=== PATIENT | female | born 1975 | race African-American/Black ===

== ENCOUNTER 2017-12-04 17:56 | Inpatient (IN) | payer SELFPAY ==
[2017-12-04 18:44] VITALS: BMI 38.5
[2017-12-04] MEDS ORDERED: ONDANSETRON 4 MG (ODT) TAB PO PRN (18:58)
[2017-12-04] MEDS ORDERED: LABETALOL 20 MG/4ML SYRINGE IV PRN (19:04)
[2017-12-04 19:28] LABS: Absolute Lymphocytes (CBC) 2.1 K/uL (0.7-4.9); Absolute Monocytes 0.5 K/uL (0.1-1.3); Absolute Neutrophil 5.2 K/uL (1.8-8.0); Basophils % 0.9 % (0-1.3); Eosinophils % 2.3 % (0-4.4); Hematocrit 38.1 % (36.0-45.0); Lymphocytes % 26.3 % (15.3-44.8); MCH 28.1 pg (27.0-35.0); MCV 88.5 fL (80-100); MPV 7.8 fL (7.6-11.3); Monocytes % 5.7 % (3.3-12.3); RBC Red Blood Cell Count 4.31 M/uL (3.86-4.86)
[2017-12-04 19:32] LABS: Protime INR 0.92
[2017-12-04 19:41] LABS: Potassium 3.8 mEq/L (3.6-5.0)
[2017-12-04 19:44] LABS: Albumin 3.7 g/dL (3.2-5.5); Bilirubin Total 0.2 mg/dL (0.3-1.2)
[2017-12-04] MEDS: NA CHLORIDE 0.9% 1,000 ML IV SCH (20:04)
[2017-12-04] MEDS: ENOXAPARIN 100 MG/ML SYR SQ SCH (20:34)
[2017-12-05] MEDS ORDERED: MORPHINE 2 MG/ML SYR IV ONE (00:12)
[2017-12-05] MEDS ORDERED: MORPHINE 4 MG/ML SYR ONE (00:41)
[2017-12-05] MEDS: HYDROCODONE/APAP 10/325 TAB PO PRN (04:37)
[2017-12-05] MEDS: NA CHLORIDE 0.9% 1,000 ML IV SCH ×2 (04:38→16:42)
[2017-12-05 04:52] LABS: Absolute Lymphocytes (CBC) 1.5 K/uL (0.7-4.9); Absolute Monocytes 0.5 K/uL (0.1-1.3); Absolute Neutrophil 5.5 K/uL (1.8-8.0); Basophils % 0.8 % (0-1.3); Eosinophils % 1.1 % (0-4.4); Hematocrit 35.8 % (36.0-45.0); Lymphocytes % 19.7 % (15.3-44.8); MCH 28.4 pg (27.0-35.0); MPV 8.1 fL (7.6-11.3); Monocytes % 5.9 % (3.3-12.3); RBC Red Blood Cell Count 4.06 M/uL (3.86-4.86)
[2017-12-05 05:03] LABS: Albumin 3.4 g/dL (3.2-5.5); Bilirubin Total 0.4 mg/dL (0.3-1.2); Potassium 3.7 mEq/L (3.6-5.0); Protein, Total 6.4 g/dL (6.0-8.3)
--- NOTE | 2017-12-05 05:05 | EKG ---
Test Date: 2017-12-04 Test Time: 23:33:25 Sightseeing Guide: RT T MEASUREMENT RESULTS: Intervals: Rate: 67 AK: 142 QRSD: 78 QT: 436 QTc: 460 [place]: P: 42 AK: 142 QRS: 36 T: 49 INTERPRETIVE STATEMENTS: Normal sinus rhythm Normal ECG No previous ECG available for comparison Electronically Signed On 12-05-17 05:05:05 CDT by Richard Jackson
[2017-12-05] MEDS ORDERED: POTASSIUM 25 MEQ EFFERV TAB PO ONE (05:17)
[2017-12-05] MEDS ORDERED: MORPHINE 4 MG/ML SYR IV PRN (07:16)
--- NOTE | 2017-12-05 07:48 | P.HP ---
Certification for Inpatient Patient admitted to: Observation With expected LOS: <2 Midnights Patient will require the following post-hospital care: None Practitioner: I am a practitioner with admitting privileges, knowledge of patient current condition, hospital course, and medical plan of care. Services: Services provided to patient in accordance with Admission requirements found in Title 42 Section 412.3 of the Code of Federal Regulations Patient History Date of Service: 12/04/17 Reason for admission: Pulmonary embolism History of Present Illness: Patient is a 42-year-old female who has no medical history who presented to [place] emergency room with complaints of chest pain. Patient was having shortness of breath along with the chest pain. Patient had traveled to [place] and back to [place] over the last few days. Patient has sent and shortness of breath and chest pain and her workup revealed a pulmonary embolism. According to the emergency room physician the patient's pulmonary embolism was in the right lower lobe distally and it was nonocclusive. Patient has never had a blood clot before. Patient denies any history of hormone use but she does smoke occasionally. She denies family members with a history of DVT. At this time she will be started on Lovenox. Patient may need to take Coumadin going forward. Allergies No Known Allergies Allergy (Verified 12/04/17 18:26) Home Medications: NK [No Home Meds] 12/04/17 - Past Medical/Surgical History Has patient received pneumonia vaccine in the past: No Diabetic: No -: HTN -: x3 - Family History Father Medical History: Heart disease, Hypertension, Diabetes Mother Medical History: Diabetes - Social History Smoking Status: Current some day smoker Alcohol use: Yes CD- Drugs: No Caffeine use: Yes Place of Residence: Home Review of Systems 10-point ROS is otherwise unremarkable Physical Examination - Vital Signs Temperature: 98.1 F Blood Pressure: 139/84 Pulse: 81 Respirations: 17 Pulse Ox (%): 94 - Physical Exam General: Alert, In no apparent distress, Oriented x3 HEENT: Atraumatic, PERRLA, Mucous membr. moist/pink, EOMI, Sclerae nonicteric Neck: Supple, 2+ carotid pulse no bruit, No LAD, Without JVD or thyroid abnormality Respiratory: Clear to auscultation bilaterally, Normal air movement Cardiovascular: Regular rate/rhythm, Normal S1 S2, No murmurs Gastrointestinal: Normal bowel sounds, Soft and benign, Non-distended, No tenderness Musculoskeletal: No clubbing, No swelling, No tenderness Integumentary: No rashes Neurological: Normal gait, Normal speech, Normal strength at 5/5 x4 extr, Normal tone, Normal affect Lymphatics: No axilla or inguinal lymphadenopathy - Studies Laboratory Data (last 24 hrs) 12/05/17 04:09: Sodium 138, Potassium 3.7, BUN 10, Creatinine 0.85, Glucose 109 , Total Bilirubin 0.4, AST 17, ALT 11, Alkaline Phosphatase 57 12/05/17 04:09: WBC 7.6, Hgb 11.5 L, Hct 35.8 L, Plt Count 304 12/04/17 19:19: Sodium 140, Potassium 3.8, BUN 14, Creatinine 0.90, Glucose 85, Total Bilirubin 0.2 L, AST 15, ALT 12, Alkaline Phosphatase 66 12/04/17 19:19: PT 10.9, INR 0.92 12/04/17 19:19: WBC 8.0, Hgb 12.1, Hct 38.1, Plt Count 316 Assessment & Plan - Problems (Diagnosis) (1) Pulmonary embolism Current Visit: Yes Status: Acute (2) History of tobacco use Current Visit: Yes Status: Acute (3) History of hypertension Current Visit: Yes Status: Acute - Plan Plan: 1. Anticoagulation 2. Pain control 3. Echocardiogram 4. Bilateral lower extremity venous Doppler 5. Social work consultation 6. Vitals Q 4 7. GI and DVT prophylax - Advance Directives Does patient have a Living Will: No Does patient have a Durable POA for Healthcare: No - Code Status/Comfort Care Code Status Assessed: Yes Code Status: Full Code Critical Care: No Time Spent Managing PTS Care (In Minutes): 50
[2017-12-05] MEDS ORDERED: LABETALOL 20 MG/4ML SYRINGE IV PRN (08:00)
--- NOTE | 2017-12-05 08:22 | RAD REPORT ---
EXAM DESCRIPTION: VASExtrem Venous W Compress Bil12/05/2017 7:44 am CLINICAL HISTORY: Bilateral leg swelling COMPARISON: none FINDINGS: The common femoral, superficial femoral, popliteal and posterior tibial veins bilaterally are compressible and demonstrate augmentation. Doppler demonstrates good flow. IMPRESSION: No evidence of deep venous thrombosis involving either lower extremity.
[2017-12-05] MEDS: ENOXAPARIN 100 MG/ML SYR SQ SCH ×2 (08:56→21:37)
--- NOTE | 2017-12-05 15:18 | PN ---
Date of Progress Note: 12/05/2017 The patient seen and examined. Chart reviewed and case discussed with RN. Subjective: Family present at the bedside, . Treatment plan explained and all questions answered. Patient denies any shortness of breath or chest pain. Review of Systems: Negative except as above. Medications: Reviewed. Physical Examination: Vital Signs: Temperature 97.6, heart rate 68, blood pressure 144/96, respirations 16, O2 100% on room air. General: Awake, alert, oriented x3, in no acute distress, somewhat ill- appearing, obese female. BMI 38.6. CV: S1, S2. No murmurs. Regular rate and rhythm. Peripheral pulses present bilaterally. Respiratory: Clear to auscultation bilaterally. No wheezing. No stridor. No use of accessory muscles. Gastrointestinal: Abdomen is soft, nontender, nondistended. Positive bowel sounds. Extremities: No clubbing, cyanosis, or edema. Neurologic: Nonfocal. Laboratory Data: Sodium 138, potassium 3.7, chloride 109, CO2 22, BUN 10, creatinine 0.85, glucose 109, calcium 8.5. WBC 7.6, H and H 11.5 and 35.8, platelets 304. INR 0.92 from 12/04/2017. Doppler sonogram shows no evidence of deep venous thrombosis involving either lower extremity. Echocardiogram pending. Assessment: A 42-year-old female with; 1. Acute pulmonary embolism and left lower lobe distally nonocclusive. We will continue with Lovenox and bridge with Coumadin. Monitor INR. 2. Nicotine dependence with cigarette smoking, counseled. 3. Essential hypertension, uncontrolled. Continue p.r.n. blood pressure medications. 4. Obesity, BMI 38.6, counseled. 5. Gastrointestinal and deep venous thrombosis prophylaxis addressed. Plan: Follow up on echocardiogram. Consider Pulmonology consultation. OCTAVIO Voice ID: [id number] Report ID: [id number] MTDD
--- NOTE | 2017-12-05 16:58 | ECHO ---
HEIGHT: 5 ft 2 in WEIGHT: 211 lb 0 oz DATE OF STUDY: 12/05/[address]: Erik Quiroz MD 2-DIMENSIONAL: YES M.MODE: YES DOPPLER: YES COLOR FLOW: YES TDS: PORTABLE: DEFINITY: BUBBLE STUDY: DIAGNOSIS: PULMONARY EMBOLISM CARDIAC HISTORY: CATHERIZATION: NO SURGERY: NO PROSTHETIC VALVE: NO PACEMAKER: NO MEASUREMENTS (cm) DIASTOLIC (NORMALS) SYSTOLIC (NORMALS) IVSd 1.0 (0.6-1.2) LA Diam 3.3 (1.9-4.0) LVEF 62% LVIDd 4.5 (3.5-5.7) LVIDs 3.0 (2.0-3.5) %FS 33% LVPWd 1.2 (0.6-1.2) Ao Diam 3.5 (2.0-3.7) 2 DIMENSIONAL ASSESSMENT: RIGHT ATRIUM: NORMAL LEFT ATRIUM: NORMAL RIGHT VENTRICLE: NORMAL LEFT VENTRICLE: NORMAL TRICUSPID VALVE: NORMAL MITRAL VALVE: NORMAL PULMONIC VALVE: NORMAL AORTIC VALVE: NORMAL PERICARDIAL EFFUSION: NONE AORTIC ROOT: NORMAL LEFT VENTRICULAR WALL MOTION: NORMAL DOPPLER/COLOR FLOW: MILD TRICUSPID REGURGITATION. NORMAL RIGHT VENTRICULAR SYSTOLIC PRESSURE. COMMENTS: MILD TRICUSPID REGURGITATION. NORMAL RIGHT VENTRICULAR SYSTOLIC PRESSURE. NORMAL LEFT VENTRICULAR SIZE AND FUNCTION. NO WALL MOTION ABNORMALITY. TECHNOLOGIST: LEILA HENRY
[2017-12-05] MEDS ORDERED: WARFARIN SODIUM 5 MG TAB PO SCH (17:00)
[2017-12-05] MEDS: PANTOPRAZOLE 40MG TABLET PO SCH (18:05)
[2017-12-06] MEDS: NA CHLORIDE 0.9% 1,000 ML IV SCH (03:07)
[2017-12-06] MEDS: ACETAMINOPHEN 500 MG TAB PO PRN (04:51)
[2017-12-06 05:08] LABS: Protime INR 0.94
[2017-12-06 05:21] LABS: BUN Blood Urea Nitrogen 7 mg/dL (6-20); Bicarbonate 26 mEq/L (21-31); Glomerular Filtration Rate > 90 mL/min (=/>90); Glucose Level 92 mg/dL (65-120); Magnesium 1.8 mg/dL (1.8-2.5); Potassium 4.1 mEq/L (3.6-5.0); Sodium Level 139 mEq/L (135-145)
[2017-12-06] MEDS ORDERED: MAGNESIUM SULFATE 1 gm IVPB 1 GM/100 ML BAG IV ONE (06:05)
[2017-12-06] MEDS: PANTOPRAZOLE 40MG TABLET PO SCH (06:29)
[2017-12-06 08:01] LABS: Urine Appearance TURBID; Urine Blood 3+ (NEG); Urine Color RED; Urine Glucose NEGATIVE (NEG); Urine Protein 2+ (NEG)
[2017-12-06 08:08] LABS: Urine Bilirubin NEGATIVE (NEG); Urine Microscopic Reflex ORDER UMIC
[2017-12-06 08:10] LABS: Urine Bacteria >50 /HPF (<20); Urine Culture Reflex Order REFLEXED; Urine RBC TNTC /HPF (NONE SEEN)
[2017-12-06] MEDS: ENOXAPARIN 100 MG/ML SYR SQ SCH ×2 (09:07→21:52)
[2017-12-06] MEDS: CEFTRIAXONE/SWI 1gm 1 GM/10 ML SYR IV SCH (11:17)
[2017-12-06] MEDS: POLYETHYL GLY 3350 17 GM/DOSE PO SCH (11:20)
[2017-12-06] MEDS ORDERED: WARFARIN SODIUM 7.5 MG TAB PO SCH (17:00)
[2017-12-06] MEDS: AMLODIPINE 5 MG TAB PO SCH (17:29)
--- NOTE | 2017-12-06 20:21 | PN ---
Date of Progress Note: 12/06/2017 Subjective: The patient is seen and examined, chart reviewed and case discussed with RN. The patient is doing well. Denies any shortness of breath or chest pain. Does report some constipation. at the bedside. Treatment plan explained. All questions answered. The patient counseled on being compliant with Coumadin diet. Review of Systems: Negative except as above. Medications: Reviewed. Physical Examination: Vital Signs: Temperature 98.2, heart rate 80, blood pressure 165/99, respirations 16, O2 saturation 97% on room air. General: Awake, alert, and oriented x3. No acute distress. Obese female. BMI 38.6. CV: S1, S2. No murmurs. Peripheral pulses are present bilaterally. Respiratory: Clear to auscultation bilaterally. No wheezing. No stridor. Abdomen: Abdomen is soft, nontender, nondistended. Positive bowel sounds. Extremities: No clubbing, cyanosis, or edema. Neurologic: Nonfocal. Laboratory Data: Sodium 139, potassium 4.1, chloride 110, CO2 26, BUN 7, creatinine 0.78, glucose 92, calcium 8, magnesium 1.8. INR 0.94. UA; 3+ blood , positive nitrite, 2+ leukocyte esterase, too numerous to count rbc's, 5-10 wbc 's, 5-10 squamous epithelial cells, greater than 50 bacteria, negative glucose. Urine culture pending. Echocardiogram shows EF of 62%, mild tricuspid regurg , normal right ventricular systolic pressure. Normal left ventricular size and function. No wall motion abnormality. Assessment And Plan: This is a 42-year-old female with; 1. Acute pulmonary embolism, left lower lobe nonocclusive. We will continue Lovenox and bridge with Coumadin. We will increase Coumadin dose and monitor INR. 2. Nicotine dependence. Cigarette smoking, counseled. 3. Obesity, BMI 38.6. 4. Essential hypertension, uncontrolled. We will adjust blood pressure medications. 5. GI/DVT prophylaxis with PPI and Lovenox. 6. UTI acute cystitis with hematuria will start on Rocephin and follow up on urine culture. Case was discussed with shuttle spotter, Dr. Marley, who recommended outpatient followup as this is a provoked incident. We will need minimum of 3 months of anticoagulation. Echocardiogram does not show any RV strain. SA/MODL Voice ID: [id number] Report ID: [id number] TERRY
[2017-12-06] MEDS: DOCUSATE NA 100 MG CAP PO SCH (21:52)
[2017-12-07 04:41] LABS: BUN Blood Urea Nitrogen 9 mg/dL (6-20); Bicarbonate 27 mEq/L (21-31); Glomerular Filtration Rate > 90 mL/min (=/>90); Glucose Level 99 mg/dL (65-120); Potassium 3.9 mEq/L (3.6-5.0); Sodium Level 140 mEq/L (135-145)
[2017-12-07 04:57] LABS: Protime INR 0.97
[2017-12-07] MEDS ORDERED: POTASSIUM 25 MEQ EFFERV TAB PO ONE (05:11)
[2017-12-07] MEDS: AMLODIPINE 5 MG TAB PO SCH (08:18)
[2017-12-07] MEDS: POLYETHYL GLY 3350 17 GM/DOSE PO SCH (08:18)
[2017-12-07] MEDS: DOCUSATE NA 100 MG CAP PO SCH ×2 (08:18→22:01)
[2017-12-07] MEDS: PANTOPRAZOLE 40MG TABLET PO SCH (08:18)
[2017-12-07] MEDS: ACETAMINOPHEN 500 MG TAB PO PRN (08:19)
[2017-12-07] MEDS: CEFTRIAXONE/SWI 1gm 1 GM/10 ML SYR IV SCH (08:19)
[2017-12-07] MEDS: ENOXAPARIN 100 MG/ML SYR SQ SCH ×2 (08:20→22:02)
--- NOTE | 2017-12-07 14:37 | PN ---
Date of Progress Note: 12/07/2017 Subjective: The patient seen and examined. Chart reviewed and case discussed with RN. The patient is doing well. Has no complaints. The patient had bowel movement today, had been constipated for pa st several days. Review of Systems: Negative except as per HPI. Medications: Reviewed. Physical Examination: Vital Signs: Temperature 97, heart rate 74, blood pressure 141/83, respirations 18, O2 96% on room a ir. General: Awake, alert, oriented x3, in no acute distress. CV: S1, S2. No murmurs. Regular rate and rhythm. Peripheral pulses present. Respiratory: Clear to auscultation bilaterally. No wheezing. No stridor. No use of accessory musc les. Gastrointestinal: Abdomen is soft, nontender, nondistended. Positive bowel sounds. Extremities: No clubbing, cyanosis, or edema. Neurologic: Nonfocal. Laboratory Data: Sodium 140, potassium 3.9, chloride 108, CO2 27, BUN 9, creatinine 0.79, glucose 99 , calcium 8.3. INR 0.97. Urine culture showing no growth. Assessment And Plan: A 42-year-old female with; 1.Acute pulmonary embolism, left lower lobe nonocclusive. We will continue Lovenox 1 mg/kg q.12 jacobo rs. Bridge with Coumadin. INR is still less than 1. We will increase Coumadin dose to 10 mg and mo nitor. 2.Urinary tract infection, acute cystitis with hematuria. Urine culture shows no growth to date. W e will continue with Rocephin. 3.Nicotine dependence with cigarette smoking, counseled. 4.Obesity, BMI 38.6. 5.Essential hypertension, uncontrolled. Added amlodipine. Blood pressure improved. We will contin ue to monitor closely and adjust medications as needed. 6.Gastrointestinal and deep venous thrombosis prophylaxis with PPI and Lovenox. Plan: Continue Lovenox bridge with Coumadin, DC once INR is above 2. SA/MODL Voice ID: [id number] Report ID: [id number]
[2017-12-07] MEDS: WARFARIN SODIUM 5 MG TAB PO SCH (16:34)
[2017-12-07] MEDS: HYDROCODONE/APAP 10/325 TAB PO PRN (22:01)
[2017-12-08 05:08] LABS: Protime INR 1.07
[2017-12-08 05:17] LABS: Potassium 4.2 mEq/L (3.6-5.0)
[2017-12-08] MEDS: DOCUSATE NA 100 MG CAP PO SCH ×2 (08:51→20:50)
[2017-12-08] MEDS: AMLODIPINE 5 MG TAB PO SCH (08:52)
[2017-12-08] MEDS: CEFTRIAXONE/SWI 1gm 1 GM/10 ML SYR IV SCH (08:54)
[2017-12-08] MEDS: ENOXAPARIN 100 MG/ML SYR SQ SCH ×2 (08:54→20:50)
[2017-12-08] MEDS: POLYETHYL GLY 3350 17 GM/DOSE PO SCH (08:55)
[2017-12-08] MEDS: PANTOPRAZOLE 40MG TABLET PO SCH (08:57)
[2017-12-08] MEDS: WARFARIN SODIUM 5 MG TAB PO SCH (16:41)
--- NOTE | 2017-12-08 18:00 | PN ---
Date of Progress Note: 12/08/2017 Subjective: The patient seen and examined. Chart reviewed and case discussed with RN. The patient denies any chest pain or shortness of breath. Review of Systems: Negative except as above. Medications: Reviewed. Physical Examination: Vital Signs: Temperature 97.7, heart rate 67, blood pressure 153/89, respirations 18, O2 97% on room air. General: Awake, alert, and oriented x3. No acute distress. Obese female. CV: S1, S2. Regular rate and rhythm. Pulses present. No murmurs. Respiratory: Clear to auscultation bilaterally. No wheezing. No stridor. No use of accessory musc les. Gastrointestinal: Abdomen is soft, nontender, nondistended. Positive bowel sounds. Extremities: No clubbing, cyanosis, or edema. Neurologic: Nonfocal. Laboratory Data: Sodium 138, potassium 4.2, chloride 105, CO2 29, BUN 12, creatinine 0.92, glucose 9 0, calcium 8.6, INR 1.07. Assessment And Plan: A 42-year-old female with; 1.Acute pulmonary embolism. Left lower lobe nonocclusive thrombus. Continue Lovenox 1 mg/kg q.12 h ours. Coumadin level has been adjusted. INR improving slowly. We will continue to monitor. Goal o f INR is between 2 and 3. 2.Urinary tract infection, acute cystitis with hematuria. Urine culture showing mixed florentin. Chelsi nue treatment with Rocephin. 3.Nicotine dependence with cigarette smoking, counseled. 4.Obesity, BMI 38.6. 5.Hypertension, improved with amlodipine. 6.Gastrointestinal and deep vein thrombosis prophylaxis, PPI and Lovenox. Plan: Discharge with INR above 2. The patient will need to follow up with Hematology as an outpatie nt. /BOB Voice ID: [id number] Report ID: [id number]
[2017-12-09 04:38] LABS: Absolute Lymphocytes (CBC) 2.2 K/uL (0.7-4.9); Absolute Monocytes 0.5 K/uL (0.1-1.3); Absolute Neutrophil 2.6 K/uL (1.8-8.0); Basophils % 1.1 % (0-1.3); Eosinophils % 2.7 % (0-4.4); Hematocrit 34.2 % (36.0-45.0); Lymphocytes % 39.7 % (15.3-44.8); MCH 28.4 pg (27.0-35.0); MCV 88.2 fL (80-100); MPV 7.6 fL (7.6-11.3); Monocytes % 8.8 % (3.3-12.3); RBC Red Blood Cell Count 3.88 M/uL (3.86-4.86)
[2017-12-09 04:52] LABS: Protime INR 1.29
[2017-12-09] MEDS: PANTOPRAZOLE 40MG TABLET PO SCH (06:47)
[2017-12-09] MEDS: ACETAMINOPHEN 500 MG TAB PO PRN (06:47)
[2017-12-09] MEDS: DOCUSATE NA 100 MG CAP PO SCH ×2 (08:34→20:46)
[2017-12-09] MEDS: ENOXAPARIN 100 MG/ML SYR SQ SCH ×2 (08:34→20:46)
[2017-12-09] MEDS: AMLODIPINE 5 MG TAB PO SCH (08:34)
[2017-12-09] MEDS: POLYETHYL GLY 3350 17 GM/DOSE PO SCH (08:35)
--- NOTE | 2017-12-09 12:46 | PN ---
Date of Progress Note: 12/09/2017 Subjective: The patient is seen and examined, chart reviewed, and case discussed with RN. The patie nt doing well. Has no complaints. Review of Systems: Negative except as above. Medications: Reviewed. Physical Examination: Vital Signs: Temperature 98.3, heart rate 78, blood pressure 149/92, respirations 16, and O2 100% on room air. General: awake, alert, oriented x3. No acute distress. CV: S1, S2. No murmurs. Regular rate and rhythm. Peripheral pulses present. Respiratory: Clear to auscultation bilaterally. No wheezing. Abdomen: Soft, nontender, nondistended. Positive bowel sounds. Extremities: No clubbing, cyanosis, or edema. Neuro: No focal. Laboratory Data: Sodium 138, WBC 5.5, H and H 11, 34.2, and platelets 321. Assessment: A 42-year-old female with; 1.Acute pulmonary embolism, left lower lobe nonocclusive thrombus. We will continue Lovenox 1 mg/kg q.12 hours and bridge with Coumadin. INR is trending up, currently 1.2. We will keep Coumadin dose as is for now at 10 mg. Monitor closely. We will titrate to goal of INR between 2 and 3. 2.Urinary tract infection, acute cystitis with hematuria. Treatment completed with Rocephin. We wi ll discontinue IV antibiotics. 3.Nicotine dependence with cigarette smoking, uncomplicated. 4.Obesity. Body mass index 38.6. 5.Essential hypertension. Continue amlodipine. 6.Gastrointestinal and deep venous thrombosis prophylaxis with PPI and Lovenox. Plan: Continue current treatment. OCTAVIO Voice ID: [id number] Report ID: [id number]
[2017-12-09] MEDS: WARFARIN SODIUM 5 MG TAB PO SCH (16:40)
[2017-12-10 05:21] LABS: Absolute Monocytes 0.4 K/uL (0.1-1.3); Absolute Neutrophil 2.8 K/uL (1.8-8.0); Basophils % 1.1 % (0-1.3); Eosinophils % 2.9 % (0-4.4); Hematocrit 33.9 % (36.0-45.0); Lymphocytes % 36.4 % (15.3-44.8); MCH 28.5 pg (27.0-35.0); MCV 88.4 fL (80-100); MPV 7.9 fL (7.6-11.3); Monocytes % 7.8 % (3.3-12.3); RBC Red Blood Cell Count 3.83 M/uL (3.86-4.86)
[2017-12-10 05:25] LABS: Protime INR 1.57
[2017-12-10] MEDS: POLYETHYL GLY 3350 17 GM/DOSE PO SCH (08:07)
[2017-12-10] MEDS: AMLODIPINE 5 MG TAB PO SCH (09:17)
[2017-12-10] MEDS: PANTOPRAZOLE 40MG TABLET PO SCH (09:17)
[2017-12-10] MEDS: ENOXAPARIN 100 MG/ML SYR SQ SCH ×2 (09:18→21:07)
[2017-12-10] MEDS: DOCUSATE NA 100 MG CAP PO SCH ×2 (09:18→21:08)
[2017-12-10] MEDS: WARFARIN SODIUM 5 MG TAB PO SCH (16:26)
--- NOTE | 2017-12-10 20:35 | PN ---
Date of Progress Note: 12/10/2017 Subjective: The patient seen and examined. Chart reviewed. Case discussed with RN. No acute distr ess. The patient is doing well. No acute events overnight. No shortness of breath or chest pain. Review of Systems: Negative except as above. Medications: Reviewed. Physical Examination: Vital Signs: Temperature 97.9, heart rate 76, blood pressure 114/69, respirations 16, O2 96% on room air. General: Awake, alert, oriented x3. No acute distress. Obese female. CV: S1, S2. No murmurs. Regular rate and rhythm. Peripheral pulses present. Respiratory: Moving air well bilaterally. No wheezing. Abdomen: Soft, nontender, nondistended. Positive bowel sounds. Extremities: No clubbing, cyanosis, or edema. Neurologic: Nonfocal. Laboratory Data: INR 1.57. WBC 5.4, H and H 10.9, 33.9, platelets 312. Assessment And Plan: A 42-year-old female with: 1.Acute pulmonary embolism, left lower lobe nonocclusive thrombus. Continue Lovenox at therapeutic dose with Coumadin. INR is 1.5. We will adjust Coumadin dose as INR comes up. Goal is INR of betwe en 2 and 3. 2.Urinary tract infection, acute cystitis with hematuria. The patient has completed treatment with IV antibiotics. 3.Nicotine dependence with cigarette smoking, uncomplicated. 4.Obesity, BMI 38.6. 5.Essential hypertension. 6.Gastrointestinal and deep venous thrombosis prophylaxis, PPI and Lovenox. Plan: Continue Lovenox with Coumadin bridging. We will DC in the next 24-48 hours as INR gets withi n range. Monitor platelets. SA/MODL Voice ID: [id number] Report ID: [id number]
[2017-12-11] MEDS: ACETAMINOPHEN 500 MG TAB PO PRN (04:05)
[2017-12-11 06:27] LABS: Absolute Monocytes 0.4 K/uL (0.1-1.3); Absolute Neutrophil 2.7 K/uL (1.8-8.0); Basophils % 0.6 % (0-1.3); Eosinophils % 3.7 % (0-4.4); Hematocrit 35.2 % (36.0-45.0); Lymphocytes % 37.1 % (15.3-44.8); MCH 28.4 pg (27.0-35.0); MCV 88.2 fL (80-100); MPV 7.6 fL (7.6-11.3); Monocytes % 8.1 % (3.3-12.3); Protime INR 1.64; RBC Red Blood Cell Count 3.99 M/uL (3.86-4.86)
[2017-12-11] MEDS: POLYETHYL GLY 3350 17 GM/DOSE PO SCH (08:55)
[2017-12-11] MEDS: ENOXAPARIN 100 MG/ML SYR SQ SCH ×2 (08:55→20:48)
[2017-12-11] MEDS: AMLODIPINE 5 MG TAB PO SCH (08:56)
[2017-12-11] MEDS: DOCUSATE NA 100 MG CAP PO SCH ×2 (08:56→20:48)
[2017-12-11] MEDS: PANTOPRAZOLE 40MG TABLET PO SCH (08:57)
--- NOTE | 2017-12-11 15:03 | PN ---
Date of Progress Note: 12/11/2017 Subjective: The patient is seen and examined, chart reviewed, and cased discussed with RN. The vinay ent has unfortunately had salad and broccoli yesterday despite Coumadin restricted diet due to dietar y mistake. We will contact dietary and make adjustments. The patient understands that she is not shankar pposed to be on any green leafy vegetables, salads, etc. that has vitamin K. Review of Systems: Negative except as above. Medications: Reviewed. Physical Examination: Vital Signs: Temperature 98.4, heart rate 77, blood pressure 128/84, respirations 16, and O2 98% on room air. General: Awake, alert, oriented x3. No acute distress. CV: S1 and S2. No murmurs. Respirations: Clear to auscultation bilaterally. No wheezing. Abdomen: Soft, nontender, nondistended. Positive bowel sounds. Extremities: No clubbing, cyanosis, or edema. Neuro: Nonfocal. Laboratory Data: Sodium 138, potassium 4.2, chloride 105, CO2 29, BUN 12, creatinine 0.92, glucose 9 0, and calcium 8.6. WBC 5.3, H and H 11.3, 35.2, and platelets 330. INR 1.64. Assessment And Plan: A 42-year-old female; 1.Acute pulmonary embolism, left lower lobe nonocclusive thrombus. Continue Lovenox 1 mg/kg q.12 ho urs. Coumadin 10 mg at night. INR still under 2. 2.Urinary tract infection, acute cystitis with hematuria, treatment completed. 3.Nicotine dependence with cigarette smoking, uncomplicated. 4.Obesity, body mass index 38.6. 5.Essential hypertension, stable. 6.Gastrointestinal and deep venous thrombosis prophylaxis with PPI and Lovenox. The patient was cou nseled regarding Coumadin restricted diet. We will call dietary and make arrangements. Social Work is also assisting the patient in establishing care with PCP as the patient will need INR monitoring c losely as she is new to Coumadin. /BOB Voice ID: [id number] Report ID: [id number]
[2017-12-11] MEDS: WARFARIN SODIUM 5 MG TAB PO SCH (17:00)
[2017-12-12 06:32] LABS: Absolute Monocytes 0.5 K/uL (0.1-1.3); Absolute Neutrophil 2.4 K/uL (1.8-8.0); Basophils % 0.6 % (0-1.3); Eosinophils % 3.5 % (0-4.4); Hematocrit 34.6 % (36.0-45.0); Lymphocytes % 38.6 % (15.3-44.8); MCH 27.9 pg (27.0-35.0); MCV 87.9 fL (80-100); MPV 7.9 fL (7.6-11.3); Monocytes % 9.3 % (3.3-12.3); RBC Red Blood Cell Count 3.93 M/uL (3.86-4.86)
[2017-12-12 06:33] LABS: Protime INR 1.79
[2017-12-12] MEDS: POLYETHYL GLY 3350 17 GM/DOSE PO SCH (08:32)
[2017-12-12] MEDS: AMLODIPINE 5 MG TAB PO SCH (08:37)
[2017-12-12] MEDS: DOCUSATE NA 100 MG CAP PO SCH ×2 (08:38→20:59)
[2017-12-12] MEDS: PANTOPRAZOLE 40MG TABLET PO SCH (08:38)
[2017-12-12] MEDS: ENOXAPARIN 100 MG/ML SYR SQ SCH ×2 (08:39→20:59)
[2017-12-12] MEDS: WARFARIN SODIUM 5 MG TAB PO SCH (16:10)
--- NOTE | 2017-12-12 16:48 | PN ---
Date of Progress Note: 12/12/2017 Subjective: The patient is seen and examined. Chart reviewed and case discussed with RN. The meng nt is doing well. No shortness of breath. Review of Systems: Negative except as above. Medications: Reviewed. Physical Examination: Vital signs: Temperature 98.5, heart rate 59, blood pressure 132/58, respirations 16, O2 92% on room air. General: Awake, alert, oriented x3. No acute distress. CV: S1, S2. No murmurs. Respiratory: Moving air well bilaterally. No wheezing. Abdomen: Soft, nontender, nondistended. Positive bowel sounds. Extremities: No clubbing, cyanosis, or edema. Neuro: Nonfocal. Laboratory Data: WBC 5.1, H and H 11 and 34.6, platelets 221. INR 1.79. Assessment And Plan: A 42-year-old female with; 1.Acute pulmonary embolism, left lower lobe. No evidence of thrombus. We will continue therapeutic Lovenox with Coumadin. INR close to 2. 2.Urinary tract infection, acute cystitis with hematuria, treatment completed. 3.Nicotine dependence. Cigarette smoking, uncomplicated. 4.Obesity, BMI 38.6. 5.Essential hypertension, stable on amlodipine. 6.Gastrointestinal/deep vein thrombosis prophylaxis with PPI and Lovenox. Plan: Continue Lovenox and Coumadin. Will likely be discharged tomorrow if INRs 2 or above. duralumin metalworker was contacted regarding the patient to find a PCP and provide list of free clinics in the [facility] as the patient is uninsured. She will need INR monitoring and refills for her Coumadin. The meng nt followup with Hematology as an outpatient. /BOB Voice ID: [id number] Report ID: [id number]
[2017-12-13 01:30] VITALS: O2SAT 97
[2017-12-13 06:13] LABS: Absolute Lymphocytes (CBC) 1.9 K/uL (0.7-4.9); Absolute Monocytes 0.5 K/uL (0.1-1.3); Absolute Neutrophil 2.1 K/uL (1.8-8.0); Basophils % 0.8 % (0-1.3); Eosinophils % 3.7 % (0-4.4); Hematocrit 34.6 % (36.0-45.0); Lymphocytes % 40.6 % (15.3-44.8); MCV 87.8 fL (80-100); MPV 7.6 fL (7.6-11.3); Monocytes % 10.2 % (3.3-12.3); RBC Red Blood Cell Count 3.94 M/uL (3.86-4.86)
[2017-12-13 06:17] LABS: Protime INR 2.14
[2017-12-13 07:59] VITALS: BP 131/74; TEMP 98.6
[2017-12-13] MEDS: PANTOPRAZOLE 40MG TABLET PO SCH (08:26)
[2017-12-13] MEDS: DOCUSATE NA 100 MG CAP PO SCH (08:27)
[2017-12-13] MEDS: ENOXAPARIN 100 MG/ML SYR SQ SCH (08:27)
[2017-12-13] MEDS: AMLODIPINE 5 MG TAB PO SCH (08:27)
[2017-12-13] MEDS: POLYETHYL GLY 3350 17 GM/DOSE PO SCH (08:29)
--- NOTE | 2017-12-14 01:35 | DS ---
Date of Discharge: 12/13/2017 Admitting Diagnoses: 1.Acute pulmonary embolism. 2.Nicotine dependence with cigarette smoking. 3.Essential hypertension. Discharge Diagnoses: 1.Acute pulmonary embolism and left lower lobe thrombus, nonocclusive. 2.Urinary tract infection, acute cystitis with hematuria, treatment completed. 3.Nicotine dependence with cigarette smoking, uncomplicated. Counseled. 4.Obesity, body mass index 38.6. 5.Essential hypertension, medications adjusted. Hospital Course: The patient is a 42-year-old female with past medical history of hypertension, who comes in with shortness of breath from [facility]. The patient was found to have PE. She had been tra veling to [place] and back to [place]. The patient was started on Lovenox. She was bridged with C oumadin. Echocardiogram was done to rule out RV strain. EF of 62%. Right ventricular systolic pres sure was normal. There was no wall motion abnormality. Extremity ultrasound was done to rule out DV T, which was negative. The patient was counseled on use of Coumadin, regarding risks, benefits, risk of bleed, reversal agents including vitamin K and Coumadin restricted diet. The patient responded s lowly to Coumadin. Her dose was adjusted several times. The patient then finally had therapeutic ra nge INR. She was also found to have a UTI, was treated with Rocephin. Her cultures showed mixed don ra. The patient was then stable for discharge. She was seen by the social workers, who provided inf ormation about establishing care with a primary care physician and she was given contact information and addresses for the free clinics in [facility] as she was currently uninsured. The patient has voiced un derstanding regarding INR checks and monitoring for signs of bleeding. The patient was then discharg ed home in a stable condition. Activity: As tolerated. Medications: As per medication reconciliation list. Establish care with PCP within the next week, have repeat INR by the end of the week. Return to ER f or worsening condition. If unable to establish care, return to the ER for INR check. Diet: Coumadin restricted heart healthy diet. Total time spent discharging the patient was 39 minutes. Physical Examination: General: Awake, alert, oriented, no acute distress. CV: S1, S2. No murmurs. Respiratory: Moving air well bilaterally. Abdomen: Soft, nontender, nondistended. Positive bowel sounds. Extremities: No clubbing, cyanosis, or edema. Neurologic: Nonfocal. SA/MODL Voice ID: [id number] Report ID: [id number]
== END 2017-12-13 11:00 | disposition home or self-care (01) | DRG 176 ==
LOC: 4TH 17:56 → OBSVTOIN 12-05 14:39
PROVIDERS: ADMIT Family Medicine; ATTEND Family Medicine
DX: I26.99 Other pulmonary embolism without acute cor pulmonale (principal); N30.01 Acute cystitis with hematuria; I10 Essential (primary) hypertension; E66.9 Obesity, unspecified; F17.200 Nicotine dependence, unspecified, uncomplicated; Z68.38 Body mass index [BMI] 38.0-38.9, adult
CPT/HCPCS: 36415; 80048; 80053; 81003; 81015; 82962; 83735; 85025; 85610; 87086; 87088; 93005; 93306; 93970; 94760; G0378; J0696; J1650; J3475; J7030

== ENCOUNTER 2019-03-01 21:29 | Emergency (ER) | payer SELFPAY ==
[2019-03-01 22:00] LABS: Absolute Lymphocytes (CBC) 3.9 K/uL (0.7-4.9); Eosinophils % 1.9 % (0-4.4); Hematocrit 35.2 % (36.0-45.0); Lymphocytes % 48.1 % (15.3-44.8); MPV 7.4 fL (7.6-11.3); Monocytes % 4.8 % (3.3-12.3)
[2019-03-01 22:12] LABS: Albumin 3.6 g/dL (3.4-5.0); Bilirubin Total 0.2 mg/dL (0.2-1.0); Potassium 3.2 mmol/L (3.5-5.1); Protein, Total 7.3 g/dL (6.4-8.2)
[2019-03-01 22:36] LABS: Barbiturates NEGATIVE (NEGATIVE); Benzodiazepines NEGATIVE (NEGATIVE); Cocaine NEGATIVE (NEGATIVE); METHAMPHETAM NEGATIVE (NEGATIVE); Methadone NEGATIVE (NEGATIVE); Opiates NEGATIVE (NEGATIVE); Phencyclidine NEGATIVE (NEGATIVE); THC Cannibis NEGATIVE (NEGATIVE)
[2019-03-01 22:37] LABS: Urine Blood TRACE (NEG); Urine Glucose NEGATIVE (NEG); Urine Protein NEGATIVE (NEG); Urine Specific Gravity 1.015 (1.005-1.030); Urine pH 5.5 (5.0-7.0)
[2019-03-01] MEDS ORDERED: NA CHLORIDE 0.9% 1,000 ML ONE (22:37)
[2019-03-01 23:47] LABS: Blood Morphology Comment NOT SEEN (NOT SEEN); Platelet Estimate ADEQ; Urine White Blood Cell Casts OK
--- NOTE | 2019-03-02 00:29 | ER ---
Nurse's Notes [facility] Name: Doreen Moise Age: 43 yrs Sex: Female : 1975 Arrival Date: 03/01/2019 Time: 21:32 Bed 2 Private MD: Diagnosis: Altered mental status, unspecified Presentation: 03/01 21:36 Presenting complaint: Significant other states: at approx 2049 pt was getting ready to aa1 take a shower and suddenly c/o abd pain and not feeling well and reported she was going to lay down. Meenu reports he called 911 for severe abd pain but upon EMS arrival pt was curled up in bed, nonverbal, and unable to follow commands. Upon arrival to ED pt will spontaneously move extremities and slowly nod when asked questions but no verbal response. Pupils pinpoint and fixed. Meenu denies use of any pain medications and states pt has not been taking her BP \T\ blood thinner medications as well. Transition of care: patient was not received from another setting of care. An acute neurological deficit is present. The patients blood glucose was checked before arriving to the hospital and was found to be normal. Onset of symptoms was March 01, 2019 at 20:50. Risk Assessment: Do you want to hurt yourself or someone else? Unable to obtain. Initial Sepsis Screen: Does the patient meet any 2 criteria? Altered Mental Status. Does the patient have a suspected source of infection? Yes: Acute abdominal pain. Care prior to arrival: IV initiated. 18 GA, in the left antecubital area, Glucose check: 101 Oxygen administered. via nasal cannula. Activity prior to arrival: unresponsive. 21:36 Method Of Arrival: EMS: [facility] aa1 21:36 Acuity: BAIRON 2 aa1 Triage Assessment: 21:46 The onset of the patients symptoms was March 01, 2019 at 20:50. aa1 Stroke Activation: Symptom onset < 3 hours Physician: Stroke Attending; Name: n/a; Notified At: 21:31; Arrived At: Physician: Chief Stroke Resident; Name: n/a; Notified At: 21:31; Arrived At: Physician: Stroke Resident; Name: n/a; Notified At: 21:31; Arrived At: Physician: ED Attending; Name: Meena; Notified At: 21:31; Arrived At: 21:35 Physician: ED Resident; Name: n/a; Notified At: 21:31; Arrived At: Historical: - Allergies: 21:46 No Known Allergies; aa1 - Home Meds: 21:46 Unable to obtain [Active]; aa1 - PMHx: 21:46 DVT; Hypertension; aa1 - Immunization history:: Adult Immunizations unknown. - Social history:: Smoking status: Patient/guardian denies using tobacco, Patient uses alcohol, Patient/guardian denies using street drugs, IV drugs, caffeine. - Ebola Screening: : No symptoms or risks identified at this time. - Family history:: not pertinent. - History obtained from: significant other. Screenin:35 Abuse screen: Denies threats or abuse. Denies injuries from another. Nutritional aa1 screening: No deficits noted. Tuberculosis screening: No symptoms or risk factors identified. Fall Risk None identified. 21:51 The patient has not been NPO before screening. The patient is not alert, or is unable aa1 to follow commands. Bedside swallow screening discontinued. Patient kept NPO until cleared by Speech Therapy or Physician. Assessment: 21:35 The patient has not been NPO before screening. The patient is not alert and/or unable aa1 to follow commands. Bedside swallow screen discontinued. Patient kept NPO until cleared by Speech Therapy or Physician. General: Appears in no apparent distress. Behavior is drowsy, listless. Pain: Unable to use pain scale. FLACC scale score is 0 out of 10. Neuro: Level of Consciousness is listless, Oriented to none Speech none. Facial symmetry appears normal, Pupils are fixed, pinpoint. Cardiovascular: Heart tones S1 S2 present Rhythm is regular. Respiratory: Airway is patent Respiratory effort is even, unlabored, Respiratory pattern is regular, symmetrical, Breath sounds are clear bilaterally. GI: Abdomen is obese, Abd is soft X 4 quads Parent/caregiver reports the patient having pain. : No signs and/or symptoms were reported regarding the genitourinary system. EENT: No signs and/or symptoms were reported regarding the EENT system. Derm: Skin is intact, is healthy with good turgor, Skin is pink, warm \T\ dry. Musculoskeletal: Capillary refill < 3 seconds. 21:40 Reassessment: Pt taken to CT at this time, accompanied by nurse. aa1 22:30 Reassessment: Patient appears in no apparent distress at this time. Patient and/or aa1 family updated on plan of care and expected duration. Pain level reassessed. Pt beginning to become more alert but is still drowsy. reports that she has also had several alcoholic beverages tonight. 23:35 VAN Scoring: Arm Drift: Patients demonstrates NO arm weakness. Patient is VAN Negative. aa1 T-PA (Activase) Screening: Contraindications: Rapidly improving condition or minor deficit: Yes. 23:39 Reassessment: Patient appears in no apparent distress at this time. Patient and/or aa1 family updated on plan of care and expected duration. Pain level reassessed. Patient is alert, oriented x 3, equal unlabored respirations, skin warm/dry/pink. Pt requesting to get up and use the restroom. Patient states symptoms have improved. 03/02 00:56 Reassessment: Patient appears in no apparent distress at this time. Patient is alert, aa1 oriented x 3, equal unlabored respirations, skin warm/dry/pink. Discussed d/c \T\ f/u instructions with pt \T\ significant other. Awaiting ride to pick them up. Vital Signs: 03/01 21:31 BP 153 / 102; Pulse 84; Resp 14; Temp 97.0; Pulse Ox 96% on R/A; Weight 88.45 kg (R); aa1 Pain 0/10; 22:17 BP 147 / 97; Pulse 78; Resp 14; Pulse Ox 96% on R/A; Pain 0/10; aa1 23:00 BP 148 / 101; Pulse 73; Resp 16; Temp 97.2; Pulse Ox 96% on R/A; Pain 0/10; aa1 03/02 00:10 BP 160 / 93; Pulse 87; Resp 16; Temp 97.1; Pulse Ox 96% on R/A; Pain 0/10; aa1 03/01 21:31 Garcia-Amador (FACES) aa1 NIH Stroke Scale Scores: 03/01 23:35 NIHSS Score: 0 aa1 ED Course: 21:30 Patient arrived in ED. aa1 21:31 Arm band placed on right wrist. Patient placed in an exam room, on a stretcher. aa1 21:32 Patient has correct armband on for positive identification. Placed in gown. Bed in low aa1 position. Call light in reach. Side rails up X2. building maintenance mechanic on. Pulse ox on. NIBP on. 21:36 Jhoana Robledo MD is Attending Physician. ma2 21:36 Brittany Monroy RN is Primary Nurse. aa1 21:39 Maintain EMS IV. Dressing intact. Good blood return noted. Site clean \T\ dry. Gauge \T\ aa 1 site: 18g LAC, 20g RAC. 21:39 Initial lab(s) drawn, by ED staff, sent to lab. aa1 21:45 Triage completed. aa1 21:51 CT Stroke Brain w/o Contrast In Process Unspecified. EDMS 22:11 Straight cath inserted, using sterile technique, 16 Fr. Specimen obtained. by Nicole laura1 LOUISE Potts Returned clear yellow urine. Patient tolerated well. 03/02 00:10 No provider procedures requiring assistance completed. IV discontinued, intact, aa1 bleeding controlled, No redness/swelling at site. Pressure dressing applied. Administered Medications: 03/01 22:20 Drug: NS 0.9% 1000 ml Route: IV; Rate: 1 bolus; Site: left antecubital; aa1 Point of Care Testing: Blood Glucose: 21:39 Blood Glucose: 115 mg/dL; aa1 Ranges: Outcome: 03/02 00:26 Discharge ordered by . ma2 01:10 Discharged to home via wheelchair, with friend, with significant other. aa1 01:10 Condition: good 01:10 Discharge instructions given to patient, significant other, Instructed on discharge instructions, follow up and referral plans. Demonstrated understanding of instructions, follow-up care. 01:16 Patient left the ED. aa1 NIH Stroke Scale - NIH Stroke Score Date: 03/01/2019 Time: 23:35 Total Score = 0 1a. Level of Consciousness (LOC) - 0(Alert) 1b. Level of Consciousness (LOC) (Year \T\ Age) - 0(Both) 1c. LOC Commands (Open \T\ Closes Eyes/Hospice Educator) - 0(Both) 2. Best Gaze (Lateral Gaze Paresis) - 0(Normal) 3. Visual Field Loss - 0(No visual loss) 4. Facial Palsy - 0(Normal) 5a. Left Arm: Motor (10-second hold) - 0(No drift) 5b. Right Arm: Motor (10-second hold) - 0(No drift) 6a. Left Leg: Motor (5-second hold - always test supine) - 0(No drift) 6b. Right Leg: Motor (5-second hold - always test supine) - 0(No drift) 7. Limb Ataxia (finger/nose \T\ heel/blue - test with eyes open) - 0(Absent) 8. Sensory Loss (pinprick arms/legs/face) - 0(Normal) 9. Best Language: Aphasia (description/naming/reading) - 0(No aphasia) 10. Dysarthria (speech clarity - read or repeat words) - 0(Normal) 11. Extinction and Inattention (visual/tactile/auditory/spatial/personal) - 0(No abnormality) Initials: aa1 Signatures: Dispatcher [employer] EDMS Brittany Monroy RN RN aa1 Chelly Patiño am2 Jhoana Robledo MD MD ma2 Corrections: (The following items were deleted from the chart) 03/01 21:50 21:32 Patient arrived in ED. am2 aa1
--- NOTE | 2019-03-02 00:29 | EDPHYS ---
Physician Documentation [facility] Name: Doreen Moise Age: 43 yrs Sex: Female : 1975 Arrival Date: 03/01/2019 Time: 21:32 Bed 2 Private MD: ED Physician Jhoana Robledo HPI: 03/02 00:26 This 43 yrs old Black Female presents to ER via EMS with complaints of S/S of Possible ma2 Stroke. 00:23 The patient's problem is reported as altered mental status. Onset: The symptoms/episode ma2 began/occurred gradually, 1 day(s) ago. Duration: This was a single incident. Context: heavy alcohol drinking. Associated signs and symptoms: Pertinent negatives: ataxia, confusion, diarrhea. Severity of symptoms: At their worst the symptoms were very mild in the emergency department the symptoms are unchanged have improved. The patient has experienced similar episodes in the past. Historical: - Allergies: 03/01 21:46 No Known Allergies; aa1 - Home Meds: 21:46 Unable to obtain [Active]; aa1 - PMHx: 21:46 DVT; Hypertension; aa1 - Immunization history:: Adult Immunizations unknown. - Social history:: Smoking status: Patient/guardian denies using tobacco, Patient uses alcohol, Patient/guardian denies using street drugs, IV drugs, caffeine. - Ebola Screening: : No symptoms or risks identified at this time. - Family history:: not pertinent. - History obtained from: significant other. ROS: 03/02 00:23 Constitutional: Negative for fever, chills, and weight loss, Abdomen/GI: Negative for ma2 abdominal pain, nausea, diarrhea, and constipation. All other systems are negative. Exam: 00:23 Radiologist reports: normal ma2 00:23 Constitutional: This is a well developed, well nourished patient who is awake, alert, and in no acute distress. Chest/axilla: Normal chest wall appearance and motion. Nontender with no deformity. No lesions are appreciated. Cardiovascular: Regular rate and rhythm with a normal S1 and S2. No gallops, murmurs, or rubs. Normal PMI, no JVD. No pulse deficits. Respiratory: Lungs have equal breath sounds bilaterally, clear to auscultation and percussion. No rales, rhonchi or wheezes noted. No increased work of breathing, no retractions or nasal flaring. Abdomen/GI: Soft, non-tender, with normal bowel sounds. No distension or tympany. No guarding or rebound. No evidence of tenderness throughout. Back: No spinal tenderness. No costovertebral tenderness. Full range of motion. MS/ Extremity: Pulses equal, no cyanosis. Neurovascular intact. Full, normal range of motion. Neuro: Awake and alert, GCS 15, oriented to person, place, time, and situation. Cranial nerves II-XII grossly intact. Motor strength 5/5 in all extremities. Sensory grossly intact. Cerebellar exam normal. Normal gait. Vital Signs: 03/01 21:31 BP 153 / 102; Pulse 84; Resp 14; Temp 97.0; Pulse Ox 96% on R/A; Weight 88.45 kg (R); aa1 Pain 0/10; 22:17 BP 147 / 97; Pulse 78; Resp 14; Pulse Ox 96% on R/A; Pain 0/10; aa1 23:00 BP 148 / 101; Pulse 73; Resp 16; Temp 97.2; Pulse Ox 96% on R/A; Pain 0/10; aa1 03/02 00:10 BP 160 / 93; Pulse 87; Resp 16; Temp 97.1; Pulse Ox 96% on R/A; Pain 0/10; aa1 03/01 21:31 Garcia-Marjorie (FACES) aa1 NIH Stroke Scale Scores: 03/01 23:35 NIHSS Score: 0 aa1 MDM: 21:36 Patient medically screened. ca2 03/02 00:23 Differential diagnosis: drug effects, AMS, alcohol. Data reviewed: vital signs, nurses ma2 notes. Counseling: I had a detailed discussion with the patient and/or guardian regarding: the historical points, exam findings, and any diagnostic results supporting the discharge/admit diagnosis, the presence of at least one elevated blood pressure reading (>120/80) during this emergency department visit, the need for outpatient follow up. Response to treatment: the patient's symptoms have resolved after treatment. ED course: back to baseline. 03/01 21:42 Order name: CBC with Diff; Complete Time: 00:11 ma2 03/01 21:42 Order name: CMP; Complete Time: 22:14 ma2 03/01 21:42 Order name: Lipase; Complete Time: 22:14 [facility] 03/01 22:00 Order name: Urine Drug Screen; Complete Time: 23:25 [facility] 03/01 22:29 Order name: Urine Dipstick--Ancillary (enter results); Complete Time: 23:25 al5 03/01 22:29 Order name: Urine --Ancillary (enter results); Complete Time: 23:25 [facility] 03/01 21:41 Order name: CT Stroke Brain w/o Contrast tl1 03/01 21:42 Order name: Urine Dipstick-Ancillary (obtain specimen); Complete Time: 22:31 [facility] 03/01 23:26 Order name: ETOH Level [facility] 03/01 23:48 Order name: CBC Smear Scan; Complete Time: 00:11 EDMS Administered Medications: 03/01 22:20 Drug: NS 0.9% 1000 ml Route: IV; Rate: 1 bolus; Site: left antecubital; aa1 Point of Care Testing: Blood Glucose: 21:39 Blood Glucose: 115 mg/dL; aa1 Ranges: Critical Glucose Levels:Adult <50 mg/dl or >400 mg/dl <40 mg/dl or >180 mg/dl Disposition: 03/02/19 00:26 Discharged to Home. Impression: Altered mental status, unspecified. - Condition is Stable. - Discharge Instructions: Alcohol Use Disorder. - Work release form, Medication Reconciliation Form, Thank You Letter, Antibiotic Education, Prescription Opioid Use form. - Follow up: Private Physician; When: Tomorrow; Reason: If symptoms return, Continuance of care. NIH Stroke Scale - NIH Stroke Score Date: 03/01/2019 Time: 23:35 Total Score = 0 1a. Level of Consciousness (LOC) - 0(Alert) 1b. Level of Consciousness (LOC) (Year \T\ Age) - 0(Both) 1c. LOC Commands (Open \T\ Closes Eyes/Office Electrician) - 0(Both) 2. Best Gaze (Lateral Gaze Paresis) - 0(Normal) 3. Visual Field Loss - 0(No visual loss) 4. Facial Palsy - 0(Normal) 5a. Left Arm: Motor (10-second hold) - 0(No drift) 5b. Right Arm: Motor (10-second hold) - 0(No drift) 6a. Left Leg: Motor (5-second hold - always test supine) - 0(No drift) 6b. Right Leg: Motor (5-second hold - always test supine) - 0(No drift) 7. Limb Ataxia (finger/nose \T\ heel/blue - test with eyes open) - 0(Absent) 8. Sensory Loss (pinprick arms/legs/face) - 0(Normal) 9. Best Language: Aphasia (description/naming/reading) - 0(No aphasia) 10. Dysarthria (speech clarity - read or repeat words) - 0(Normal) 11. Extinction and Inattention (visual/tactile/auditory/spatial/personal) - 0(No abnormality) Initials: aa1 Signatures: Dispatcher [employer] [facility] Brittany Monroy RN RN aa1 Jhoana Robledo MD MD ma2 Corrections: (The following items were deleted from the chart) 21:49 21:42 Head Brain Wo Cont+CT.RAD.BRZ ordered. [facility] 03/02 01:16 00:26 03/02/2019 00:26 Discharged to Home. Impression: Altered mental status, aa1 unspecified. Condition is Stable. Forms are Medication Reconciliation Form, Thank You Letter, Antibiotic Education, Prescription Opioid Use. Follow up: Private Physician; When: Tomorrow; Reason: If symptoms return, Continuance of care. ma2
[2019-03-02 01:33] VITALS: O2SAT 96
[2019-03-02 01:38] VITALS: BP 160/93; TEMP 97.1
--- NOTE | 2019-03-04 13:03 | RAD REPORT ---
EXAM DESCRIPTION: CT - Ct Stroke Brain Wo Cont - 03/02/2019 1:26 am CLINICAL HISTORY: 43 years Female, APHASIA TECHNIQUE: 5 mm axial images were obtained along with 3 mm reformatted coronal and sagittal images. This exam was performed according to our departmental dose-optimization program, which includes autom ated exposure control, adjustment of the mA and/or kV according to patient size and/or use of iterati ve reconstruction technique. COMPARISON: None. FINDINGS: No acute abnormal extracerebral fluid collections are demonstrated. The cortical sulci, ventricles, and cisterns are within normal limits. There are physiologic calcifications within the basal ganglia bilaterally. There are no areas of altered attenuation identified to suggest acute hemorrhage, infarction, or mass lesion. The visualized portions of the paranasal sinuses and mastoid air cells are clear. IMPRESSION: 1. No acute abnormalities. NOTIFICATION: Results were discussed with Dr. Robledo 9:55 PM. Electronically signed by: Marcus Díaz MD 03/01/2019 9:56 PM CDT Due to temporary technical issues with the PACS/Fluency reporting system, reports are being signed by the in house radiologist as a courtesy to ensure prompt reporting. The interpreting radiologist is f ully responsible for the content of the report.
== END 2019-03-02 01:16 | disposition home or self-care (01) ==
LOC: ER 21:29
DX: R41.82 Altered mental status, unspecified (principal); I10 Essential (primary) hypertension; Z86.718 Personal history of other venous thrombosis and embolism
CPT/HCPCS: 36415; 51702; 70450; 80053; 80307; 80320; 81003; 81025; 82962; 83690; 85025; 99284; J7030

== ENCOUNTER 2019-05-22 09:41 | Emergency (ER) | payer SELFPAY ==
[2019-05-22] MEDS ORDERED: AMLODIPINE 5 MG TAB ONE (10:53)
--- NOTE | 2019-05-22 11:20 | RAD REPORT ---
EXAM DESCRIPTION: CT - Head Brain Wo Cont - 05/22/2019 11:09 am CLINICAL HISTORY: Headache COMPARISON: February 2019 TECHNIQUE: Computed axial tomography of the head was obtained. IV contrast was not requested. All CT scans are performed using dose optimization technique as appropriate and may include automated exposure control or mA/KV adjustment according to patient size. FINDINGS: An intracranial bleed is not seen . The ventricles are normal in caliber. No extra-axial fluid collection is noted. Basal ganglia calcifications Fluid within the sinuses/ mastoids is not seen. IMPRESSION: No acute intracranial abnormality is seen. If patient's symptoms persist MRI of the bra in would be recommended.
[2019-05-22 12:01] LABS: Barbiturates NEGATIVE (NEGATIVE); Benzodiazepines NEGATIVE (NEGATIVE); Cocaine NEGATIVE (NEGATIVE); METHAMPHETAM NEGATIVE (NEGATIVE); Methadone NEGATIVE (NEGATIVE); Opiates NEGATIVE (NEGATIVE); Phencyclidine NEGATIVE (NEGATIVE); THC Cannibis NEGATIVE (NEGATIVE)
[2019-05-22 12:10] LABS: Urine RBC <5 /HPF (NONE SEEN)
[2019-05-22 12:11] LABS: Urine Bacteria <20 /HPF (<20); Urine Culture Reflex Order NOT NEEDED
--- NOTE | 2019-05-22 12:12 | ER ---
Nurse's Notes [facility] Name: Doreen Moise Age: 43 yrs Sex: Female : 1975 Arrival Date: 05/22/2019 Time: 09:41 Bed 20 Private MD: Diagnosis: Essential (primary) hypertension Presentation: 05/22 10:36 Presenting complaint: Patient states: BP running high X 2 days, also has intermittent iw headache, hsa been diagnosed with htn in past but has not been on meds since 2018. Transition of care: patient was not received from another setting of care. Onset of symptoms was May 21, 2019. Risk Assessment: Do you want to hurt yourself or someone else? Patient reports no desire to harm self or others. Initial Sepsis Screen: Does the patient meet any 2 criteria? No. Patient's initial sepsis screen is negative. Does the patient have a suspected source of infection? No. Patient's initial sepsis screen is negative. Care prior to arrival: None. 10:36 Method Of Arrival: Ambulatory iw 10:36 Acuity: BAIRON 3 iw Triage Assessment: 10:47 General: Appears in no apparent distress. comfortable, Behavior is cooperative, bp appropriate for age, anxious. Pain: Complains of pain in head. EENT: No deficits noted. Neuro: Reports headache. Cardiovascular: No deficits noted. Respiratory: No deficits noted. GI: No signs and/or symptoms were reported involving the gastrointestinal system. : No signs and/or symptoms were reported regarding the genitourinary system. Derm: No deficits noted. Musculoskeletal: No deficits noted. 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 - Social history:: Smoking status: Patient uses tobacco products, denies chronic smoking, but will smoke occasionally. - Ebola Screening: : Patient negative for fever greater than or equal to 101.5 degrees Fahrenheit, and additional compatible Ebola Virus Disease symptoms Patient denies exposure to infectious person Patient denies travel to an Ebola-affected area in the 21 days before illness onset No symptoms or risks identified at this time. Screenin:48 Abuse screen: Denies threats or abuse. Denies injuries from another. Nutritional bp screening: No deficits noted. Tuberculosis screening: No symptoms or risk factors identified. Fall Risk None identified. Assessment: 10:48 General: SEE TRIAGE NOTE. bp 11:44 Reassessment: Patient and/or family updated on plan of care and expected duration. Pain bp level reassessed. PT RETURNED FROM CT. ALL CURRENT ORDERS COMPLETED. Neuro: Level of Consciousness is awake, alert, obeys commands, Oriented to person, place, time, situation, Appropriate for age. 12:21 Reassessment: PT D/C HOME AMBULATORY WITH FAMILY, DX WITH HTN. bp Vital Signs: 10:38 BP 158 / 115; Pulse 78; Resp 16; Temp 98.2; Pulse Ox 100% on R/A; Weight 83.91 kg; iw Height 5 ft. 2 in. (157.48 cm); Pain 10/10; 11:30 BP 185 / 108; Pulse 73; Resp 17; Pulse Ox 98% ; bp 12:00 BP 173 / 103; Pulse 78; Resp 17; Pulse Ox 100% ; bp 12:21 BP 159 / 98; Pulse 74; Resp 17; Temp 98.2; Pulse Ox 99% ; bp 10:38 Body Mass Index 33.84 (83.91 kg, 157.48 cm) iw ED Course: 09:41 Patient arrived in ED. as 09:59 Xuan Card FNP-C is [facility]. snw 09:59 Bartolome Haynes MD is Attending Physician. snw 10:04 EKG done, by cardiovascular tech. reviewed by Xuan MCLAUGHLIN. at1 10:37 Triage completed. iw 10:38 Arm band placed on. iw 10:46 José Walker, LOUISE is Primary Nurse. bp 10:48 Patient has correct armband on for positive identification. Bed in low position. Call bp light in reach. Side rails up X2. Adult w/ patient. 11:12 CT Head Brain wo Cont In Process Unspecified. EDMS 12:21 No provider procedures requiring assistance completed. Patient did not have IV access bp during this emergency room visit. Administered Medications: 10:54 Drug: Norvasc 10 mg Route: PO; bp 11:43 Follow up: Response: No adverse reaction bp 12:15 Drug: Marion 5 mg-325 mg 1 tabs Route: PO; bp 12:20 Follow up: Response: No adverse reaction bp 12:15 Drug: Tylenol 500 mg Route: PO; bp 12:20 Follow up: Response: No adverse reaction bp Outcome: 12:11 Discharge ordered by MD. thakkar 12:22 Discharged to home ambulatory. bp 12:22 Condition: stable 12:22 Discharge instructions given to patient, Instructed on discharge instructions, follow up and referral plans. medication usage, Demonstrated understanding of instructions, follow-up care, medications, Prescriptions given X 1. 12:22 Patient left the ED. bp Signatures: Dispatcher [employer] EDMS Xuan Card, REGISTERED NURSE SUPERVISOR-C REGISTERED NURSE SUPERVISOR-Csnw Lisa Romero Irene, RN RN iw Chelly Moreno, supervisor delivery department EKG Tat1 José Walker RN RN bp
--- NOTE | 2019-05-22 12:12 | EDPHYS ---
Physician Documentation [facility] Name: Doreen Moise Age: 43 yrs Sex: Female : 1975 Arrival Date: 05/22/2019 Time: 09:41 Bed 20 Private MD: ED Physician Bartolome Haynes HPI: 05/22 10:54 This 43 yrs old Black Female presents to ER via Ambulatory with complaints of High snw Blood Pressure. 10:54 The patient has elevated blood pressure and discovered this at home. Onset: The snw symptoms/episode began/occurred suddenly, 2 day(s) ago, and became persistent. Modifying factors: The symptoms are aggravated by nothing. Associated signs and symptoms: Pertinent positives: headache, Pertinent negatives: chest pain, dizziness, dyspnea, nausea, visual changes, vomiting, weakness. The patient has experienced a previous episode. The patient has not recently seen a physician. 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 - Social history:: Smoking status: Patient uses tobacco products, denies chronic smoking, but will smoke occasionally. - Ebola Screening: : Patient negative for fever greater than or equal to 101.5 degrees Fahrenheit, and additional compatible Ebola Virus Disease symptoms Patient denies exposure to infectious person Patient denies travel to an Ebola-affected area in the 21 days before illness onset No symptoms or risks identified at this time. ROS: 10:53 Constitutional: Negative for fever, chills, and weight loss, Eyes: Negative for injury, snw pain, redness, and discharge, ENT: Negative for injury, pain, and discharge, Neck: Negative for injury, pain, and swelling, Cardiovascular: Negative for chest pain, palpitations, and edema, Respiratory: Negative for shortness of breath, cough, wheezing, and pleuritic chest pain, Abdomen/GI: Negative for abdominal pain, nausea, vomiting, diarrhea, and constipation, Back: Negative for injury and pain, : Negative for injury, bleeding, discharge, and swelling, MS/Extremity: Negative for injury and deformity, Skin: Negative for injury, rash, and discoloration. 10:53 Psych: Negative for depression, anxiety, suicide ideation, homicidal ideation, and hallucinations. 10:53 Neuro: Positive for headache. Exam: 10:53 Constitutional: This is a well developed, well nourished patient who is awake, alert, snw and in no acute distress. Head/Face: Normocephalic, atraumatic. Eyes: Pupils equal round and reactive to light, extra-ocular motions intact. Lids and lashes normal. Conjunctiva and sclera are non-icteric and not injected. Cornea within normal limits. Periorbital areas with no swelling, redness, or edema. ENT: Nares patent. No nasal discharge, no septal abnormalities noted. Tympanic membranes are normal and external auditory canals are clear. Oropharynx with no redness, swelling, or masses, exudates, or evidence of obstruction, uvula midline. Mucous membranes moist. Neck: Trachea midline, no thyromegaly or masses palpated, and no cervical lymphadenopathy. Supple, full range of motion without nuchal rigidity, or vertebral point tenderness. No Meningismus. Chest/axilla: Normal chest wall appearance and motion. Nontender with no deformity. No lesions are appreciated. Cardiovascular: Regular rate and rhythm with a normal S1 and S2. No gallops, murmurs, or rubs. Normal PMI, no JVD. No pulse deficits. Respiratory: Lungs have equal breath sounds bilaterally, clear to auscultation and percussion. No rales, rhonchi or wheezes noted. No increased work of breathing, no retractions or nasal flaring. Abdomen/GI: Soft, non-tender, with normal bowel sounds. No distension or tympany. No guarding or rebound. No evidence of tenderness throughout. Back: No spinal tenderness. No costovertebral tenderness. Full range of motion. Skin: Warm, dry with normal turgor. Normal color with no rashes, no lesions, and no evidence of cellulitis. MS/ Extremity: Pulses equal, no cyanosis. Neurovascular intact. Full, normal range of motion. Neuro: Awake and alert, GCS 15, oriented to person, place, time, and situation. Cranial nerves II-XII grossly intact. Motor strength 5/5 in all extremities. Sensory grossly intact. Cerebellar exam normal. Normal gait. Psych: Awake, alert, with orientation to person, place and time. Behavior, mood, and affect are within normal limits. Vital Signs: 10:38 BP 158 / 115; Pulse 78; Resp 16; Temp 98.2; Pulse Ox 100% on R/A; Weight 83.91 kg; iw Height 5 ft. 2 in. (157.48 cm); Pain 10/10; 11:30 BP 185 / 108; Pulse 73; Resp 17; Pulse Ox 98% ; bp 12:00 BP 173 / 103; Pulse 78; Resp 17; Pulse Ox 100% ; bp 12:21 BP 159 / 98; Pulse 74; Resp 17; Temp 98.2; Pulse Ox 99% ; bp 10:38 Body Mass Index 33.84 (83.91 kg, 157.48 cm) iw MDM: 10:40 Patient medically screened. snw 12:12 Data reviewed: vital signs, nurses notes. Data interpreted: Pulse oximetry: on room air snw is 100 %. Interpretation: normal. Counseling: I had a detailed discussion with the patient and/or guardian regarding: the historical points, exam findings, and any diagnostic results supporting the discharge/admit diagnosis, the presence of at least one elevated blood pressure reading (>120/80) during this emergency department visit, lab results, radiology results, the need for outpatient follow up, to return to the emergency department if symptoms worsen or persist or if there are any questions or concerns that arise at home. Response to treatment: the patient's symptoms have mildly improved after treatment. Special discussion: I have referred the patient to see his PCP for further evaluation of high blood pressure. Based on the history and exam findings, there is no indication for further emergent testing or inpatient evaluation. I discussed with the patient/guardian the need to see the primary care provider for further evaluation of the symptoms. 05/22 10:13 Order name: Urine Drug Screen; Complete Time: 12:04 snw 05/22 10:13 Order name: Urine Microscopic Only; Complete Time: 12:14 snw 05/22 10:55 Order name: CT Head Brain wo Cont; Complete Time: 11:38 snw 05/22 11:43 Order name: Urine Dipstick--Ancillary (enter results) eb 05/22 11:43 Order name: Urine --Ancillary (enter results) eb 09/11 10:13 Order name: Urine Dipstick-Ancillary (obtain specimen); Complete Time: 11:43 snw 05/22 10:13 Order name: EKG; Complete Time: 10:14 snw 05/22 10:13 Order name: EKG - Nurse/Tech; Complete Time: 10:54 snw 05/22 11:39 Order name: Misc. Order: BP reading every 30 minutes; Complete Time: 11:43 snw Administered Medications: 10:54 Drug: Norvasc 10 mg Route: PO; bp 11:43 Follow up: Response: No adverse reaction bp 12:15 Drug: [place] 5 mg-325 mg 1 tabs Route: PO; bp 12:20 Follow up: Response: No adverse reaction bp 12:15 Drug: Tylenol 500 mg Route: PO; bp 12:20 Follow up: Response: No adverse reaction bp Disposition: 05/22/19 12:11 Discharged to Home. Impression: Essential (primary) hypertension. - Condition is Stable. - Discharge Instructions: Hypertension, How to Take Your Blood Pressure, Vwqj-[id number], DASH Eating Plan, Managing Your Hypertension, Form - Blood Pressure Record Sheet. - Prescriptions for Norvasc 10 mg Oral Tablet - take 1 tablet by ORAL route once daily; 30 tablet. - Work release form, Medication Reconciliation Form, Thank You Letter, Antibiotic Education, Prescription Opioid Use form. - Follow up: Private Physician; When: 1 week; Reason: Recheck today's complaints, Continuance of care, Re-evaluation by your physician. Follow up: Emergency Department; When: As needed; Reason: Worsening of condition. Addendum: 05/27/2019 08:55 Co-signature as Attending Physician, Bartolome Haynes MD I agree with the assessment and k dr plan of care. Signatures: Dispatcher [employer] EDMT Bartolome Haynes MD MD kdr Therrien, Shelly, JAX-C FLAT SCREEN WORKER-Skylarw Angelika Saucedo, LOUISE RN José Veras RN RN bp Corrections: (The following items were deleted from the chart) 05/22 12:22 12:11 05/22/2019 12:11 Discharged to Home. Impression: Essential (primary) bp hypertension. Condition is Stable. Forms are Medication Reconciliation Form, Thank You Letter, Antibiotic Education, Prescription Opioid Use. Follow up: Private Physician; When: 1 week; Reason: Recheck today's complaints, Continuance of care, Re-evaluation by your physician. Follow up: Emergency Department; When: As needed; Reason: Worsening of condition. snw
[2019-05-22] MEDS ORDERED: ACETAMINOPHEN 500 MG TAB ONE (12:17)
[2019-05-22] MEDS ORDERED: HYDROCODONE/APAP 5/325 MG TAB ONE (12:17)
[2019-05-22 12:31] VITALS: TEMP 98.2
[2019-05-22 12:35] VITALS: BP 159/98; O2SAT 99
[2019-05-22 13:46] LABS: Urine Blood TRACE (NEG); Urine Glucose NEGATIVE (NEG); Urine Protein NEGATIVE (NEG)
--- NOTE | 2019-05-22 15:56 | EKG ---
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
== END 2019-05-22 12:22 | disposition home or self-care (01) ==
LOC: ER 09:41
DX: I10 Essential (primary) hypertension (principal); Z72.0 Tobacco use
CPT/HCPCS: 70450; 80307; 81003; 81015; 81025; 93005; 99284

== ENCOUNTER 2024-11-26 19:09 | Emergency (ER) | payer SELFPAY ==
[2024-11-26] MEDS ORDERED: LIDOCAINE VISCOUS 2% 10ML ORAL SOLN ONE (19:45)
[2024-11-26] MEDS ORDERED: ACETAMINOPHEN 500 MG TAB ONE (19:45)
[2024-11-26] MEDS ORDERED: BENZONATATE 100 MG CAP PO ONE (19:45)
[2024-11-26 20:27] LABS: Influenza A Ag Negative; Influenza B Ag Negative; SARS-CoV-2 Antigen Rapid Res Negative (Negative)
--- NOTE | 2024-11-26 20:27 | RAD REPORT ---
EXAMINATION: ONE VIEW CHEST XR CLINICAL INDICATION: COUGH TECHNIQUE: Frontal chest projection is submitted. Examination is limited by patient positioning and t echnique. COMPARISON: No prior exam. FINDINGS: The lungs are well inflated and clear. The heart is upper limit of normal in size. No displaced fract ures identified. IMPRESSION: No acute intrathoracic abnormalities.
--- NOTE | 2024-11-26 21:23 | ER ---
Nurse's Notes [facility] Name: Doreen Moise Age: 49 yrs Sex: Female : 1975 Arrival Date: 11/26/2024 Time: 19:09 Bed DX4 Private MD: Diagnosis: Acute upper respiratory infection, unspecified Presentation: 11/26 19:40 Chief complaint: Patient states: cough, sore throat for 4 days. Coronavirus screen: vc1 Client denies travel out of the [place] in the last 14 days. At this time, the client does not indicate any symptoms associated with coronavirus-19. Ebola Screen: Patient negative for fever greater than or equal to 101.5 degrees Fahrenheit, and additional compatible Ebola Virus Disease symptoms Patient denies exposure to infectious person. Patient denies travel to an Ebola-affected area in the 21 days before illness onset. No symptoms or risks identified at this time. Initial Sepsis Screen: Does the patient meet any 2 criteria? No. Patient's initial sepsis screen is negative. Does the patient have a suspected source of infection? No. Patient's initial sepsis screen is negative. Risk Assessment: Do you want to hurt yourself or someone else? Patient reports no desire to harm self or others. Onset of symptoms was November 22, 2024. Care prior to arrival: None. 19:40 Method Of Arrival: Ambulatory vc1 19:40 Acuity: BAIRON 4 vc1 Triage Assessment: 20:42 General: Appears in no apparent distress. uncomfortable, ill, obese, well groomed, well vc1 developed, Behavior is calm, cooperative, appropriate for age. Pain: Complains of pain in throat Pain does not radiate. Pain currently is 10 out of 10 on a pain scale. EENT: Reports difficulty swallowing. Neuro: Level of Consciousness is awake, alert, obeys commands, Oriented to person, place, time, situation, Appropriate for age. Cardiovascular: Capillary refill < 3 seconds Patient's skin is warm and dry. Respiratory: Reports cough that is Airway is patent Respiratory effort is even, unlabored, Respiratory pattern is regular, symmetrical. GI: No deficits noted. No signs and/or symptoms were reported involving the gastrointestinal system. : No deficits noted. No signs and/or symptoms were reported regarding the genitourinary system. Derm: Skin is intact, is healthy with good turgor, Skin is dry, Skin is normal, Skin temperature is warm. Musculoskeletal: Circulation, motion, and sensation intact. Range of motion: intact in all extremities. 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 - Infectious Disease History:: Denies. - Social history:: Smoking status: Patient denies any tobacco usage or history of. Screenin:10 [facility] ED Fall Risk Assessment (Adult) History of falling in the last 3 months, vc1 including since admission No falls in past 3 months (0 pts) Confusion or Disorientation No (0 pts) Intoxicated or Sedated No (0 pts) Impaired Gait No (0 pts) Mobility Assist Device Used No (0 pt) Altered Elimination No (0 pt) Score/Fall Risk Level 0 - 2 = Low Risk Oriented to surroundings, Maintained a safe environment, Educated pt \T\ family on fall prevention, incl call for assistance when getting out of bed. Abuse screen: Denies threats or abuse. Nutritional screening: No deficits noted. Tuberculosis screening: No symptoms or risk factors identified. Assessment: 19:40 General: see triage assessment. vc1 21:13 Reassessment: Patient and/or family updated on plan of care and expected duration. Pain vc1 level reassessed. Patient states feeling better. Patient states symptoms have improved. Respiratory: Airway is patent Breath sounds are clear bilaterally. Vital Signs: 19:40 BP 212 / 115; Pulse 82; Resp 18; Temp 99.5; Pulse Ox 99% ; Weight 107.05 kg; Height 5 vc1 ft. 2 in. ; Pain 10/10; 21:11 BP 180 / 108; Pulse 82; Resp 18; Pulse Ox 98% ; vc1 19:40 Body Mass Index 43.17 (107.05 kg, 157.48 cm) vc1 19:40 Pain Scale: Adult vc1 ED Course: 19:11 Patient arrived in ED. mr 19:42 Triage completed. vc1 19:43 Nataly Nicholson PA-C is PHCP. sb4 19:43 Mor Sharpe MD is Attending Physician. sb4 19:43 Arm band placed on left wrist. vc1 19:47 COVID-19 Ag + Flu A+B Ag Sent. vc1 19:47 Group A Streptococcus Rapid Sent. vc1 19:48 COVID-19 Ag + Flu A+B Ag Sent. vc1 19:48 Group A Streptococcus Rapid Sent. vc1 20:18 CXR XRAY In Process Unspecified. EDMS 21:11 Patient has correct armband on for positive identification. vc1 21:49 Nel Guzman RN is Primary Nurse. vc1 21:49 No provider procedures requiring assistance completed. Patient did not have IV access vc1 during this emergency room visit. 21:50 Provided Education on: medication. vc1 Administered Medications: 19:45 CANCELLED (Duplicate Order): tessalon kinry750 mg PO once vc1 19:45 CANCELLED (Duplicate Order): [id number] mg PO once vc1 19:47 Drug: Acetaminophen PO 1000 mg PO once Route: PO; vc1 22:20 Follow up: Response: Medication administered at discharge. vc1 19:47 Drug: Tessalon Perle PO 200 mg PO once Route: PO; vc1 22:19 Follow up: Response: No adverse reaction; Marked relief of symptoms vc1 19:47 Drug: Viscous Lidocaine Mucous Membrane Liquid (4 %) 10 ml Mucous Membrane once Route: vc1 Mucous Membrane; 22:19 Drug: AZITHromycin PO 500 mg PO once Route: PO; vc1 22:19 Follow up: Response: Medication administered at discharge. vc1 22:19 Drug: predniSONE PO 20 mg PO once Route: PO; vc1 22:19 Follow up: Response: Medication administered at discharge. vc1 Medication: 21:11 VIS not applicable for this client. vc1 Outcome: 21:22 Discharge ordered by . sb4 21:50 Discharged to home ambulatory, vc1 21:50 Condition: stable 21:50 Discharge instructions given to patient, Instructed on discharge instructions, follow up and referral plans. medication usage, Demonstrated understanding of instructions, follow-up care, medications, Prescriptions given X 3, 22:20 Patient left the ED. vc1 Signatures: Dispatcher [employer] EDNY Kayla Deleon, Reg Reg mr Nel Guzman, LOUISE RN vc1 Nataly Nicholson PA-C PAYoselyn sb4 Corrections: (The following items were deleted from the chart) 21:13 19:40 Pulse 82bpm; Resp 18bpm; Pulse Ox 99%; Temp 99.5F; 107.05 kg; Height 5 ft. 2 in.; vc1 BMI: 43.1; Pain 06/20, Adult; vc1
--- NOTE | 2024-11-26 21:23 | EDPHYS ---
Physician Documentation [facility] Name: Doreen Moise Age: 49 yrs Sex: Female : 1975 Arrival Date: 11/26/2024 Time: 19:09 Bed DX4 Private MD: ED Physician Mor Sharpe HPI: 11/26 22:21 This 49 yrs old Black Female presents to ER via Ambulatory with complaints of Cough, sb4 Sore Throat. 22:21 Cough, congestion, sore throat x 4 days. Denies any fever, chills, nausea, vomiting, sb4 diarrhea. States that she is new to this area. States that she has been taking [id number] medications without significant relief in symptoms. 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 Denies any chest pain or shortness of breath. 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 - Infectious Disease History:: Denies. - Social history:: Smoking status: Patient denies any tobacco usage or history of. ROS: 22:21 Constitutional: Negative for fever, chills, and weight loss, sb4 22:21 ENT: Positive for sinus congestion, sore throat, 22:21 Respiratory: Positive for cough, 22:21 All other systems are negative, Exam: 22:21 Constitutional: This is a well developed, well nourished patient who is awake, alert, sb4 and in no acute distress. Head/Face: Normocephalic, atraumatic. Eyes: Extra-ocular motions intact. Periorbital areas with no swelling, redness, or edema. ENT: Mucous membranes moist. Cardiovascular: Regular rate and rhythm with a normal S1 and S2. Respiratory: No increased work of breathing, no retractions or nasal flaring. Abdomen/GI: Soft, non-tender, no distension. Skin: Warm, dry with normal turgor. Normal color with no rashes, no lesions, and no evidence of cellulitis. 22:21 ENT: Posterior pharynx: Tonsils: are normal in appearance, swelling, that is mild, erythema, that is moderate, Vital Signs: 19:40 BP 212 / 115; Pulse 82; Resp 18; Temp 99.5; Pulse Ox 99% ; Weight 107.05 kg; Height 5 vc1 ft. 2 in. ; Pain 10/10; 21:11 BP 180 / 108; Pulse 82; Resp 18; Pulse Ox 98% ; vc1 19:40 Body Mass Index 43.17 (107.05 kg, 157.48 cm) vc1 19:40 Pain Scale: Adult vc1 MDM: 19:43 Medical Screening Exam initiated sb4 22:22 Data reviewed: vital signs, nurses notes, lab test result(s), radiologic studies, and sb4 as a result, I will discharge patient. Counseling: I had a detailed discussion with the patient and/or guardian regarding the historical points, exam findings, and any diagnostic results supporting the discharge/admit diagnosis, lab results, radiology results, the need for outpatient follow up, for definitive care, to return to the emergency department if symptoms worsen or persist or if there are any questions or concerns that arise at home. 11/26 19:43 Order name: Group A Streptococcus Rapid; Complete Time: 20:15 sb4 11/26 19:43 Order name: COVID-19 Ag + Flu A+B Ag; Complete Time: 20:35 sb4 11/26 19:44 Order name: Group A Streptococcus Rapid vc1 11/26 20:16 Order name: Throat Culture EDMO 11/26 19:44 Order name: CXR XRAY; Complete Time: 20:35 vc1 Administered Medications: 19:45 CANCELLED (Duplicate Order): tessalon mg PO once vc1 19:45 CANCELLED (Duplicate Order): [id number] mg PO once vc1 19:47 Drug: Acetaminophen PO 1000 mg PO once Route: PO; vc1 22:20 Follow up: Response: Medication administered at discharge. vc1 19:47 Drug: Tessalon Perle PO 200 mg PO once Route: PO; vc1 22:19 Follow up: Response: No adverse reaction; Marked relief of symptoms vc1 19:47 Drug: Viscous Lidocaine Mucous Membrane Liquid (4 %) 10 ml Mucous Membrane once Route: vc1 Mucous Membrane; 22:19 Drug: AZITHromycin PO 500 mg PO once Route: PO; vc1 22:19 Follow up: Response: Medication administered at discharge. vc1 22:19 Drug: predniSONE PO 20 mg PO once Route: PO; vc1 22:19 Follow up: Response: Medication administered at discharge. vc1 Disposition Summary: 11/26/24 21:22 Discharge Ordered Notes: Location: Home sb4 Problem: new sb4 Symptoms: are unchanged sb4 Condition: Stable sb4 Diagnosis - Acute upper respiratory infection, unspecified sb4 Followup: sb4 - With: Emergency Department - When: As needed - Reason: Trouble breathing, Worsening of condition Discharge Instructions: - Discharge Summary Sheet sb4 - Upper Respiratory Infection, Adult, Zmip-so-Ejga sb4 Forms: - Antibiotic Education sb4 - Patient Portal Instructions sb4 - Leadership Thank You Letter sb4 Prescriptions: - Zithromax 250 mg Oral tablet - take 1 tablet ORAL route daily for 4 days; 4 tablet; Refills: 0, Product sb4 Selection Permitted - Prednisone 20 mg Oral Tablet - take 1 tablet ORAL route once daily for 5 days; 5 tablet; Refills: 0, Product sb4 Selection Permitted - Loratadine 10 mg Oral Tablet - take 1 tablet ORAL route once daily; 14 tablet; Refills: 0, Product Selection sb4 Permitted Signatures: Dispatcher [employer] Nel Krishna RN RN vc1 Nataly Nicholson PA-C PA-C sb4 Corrections: (The following items were deleted from the chart) 19:45 19:44 Tessalon Perle PO 200 mg PO once ordered. vc1 vc1 19:45 19:44 Acetaminophen PO 1000 mg PO once ordered. vc1 vc1 22:22 22:21 Cough, congestion, sore throat x 4 days. Denies any fever, chills, nausea, sb4 vomiting, diarrhea. States that she is new to this area. States that she has been taking [id number] medications without significant relief in symptoms. 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
[2024-11-26] MEDS ORDERED: predniSONE 20 MG TAB ONE (22:15)
[2024-11-26] MEDS ORDERED: AZITHROMYCIN 250 MG TAB ONE (22:16)
[2024-11-27 04:38] VITALS: TEMP 99.5
[2024-11-27 04:42] VITALS: BP 180/108; O2SAT 98
== END 2024-11-26 22:20 | disposition home or self-care (01) ==
LOC: ER 19:09
DX: J06.9 Acute upper respiratory infection, unspecified (principal); Z11.52 Encounter for screening for COVID-19
CPT/HCPCS: 36415; 71045; 87070; 87428; J7512